=== PATIENT | male | born 1975 | race Caucasian/White ===

== ENCOUNTER 2020-08-06 16:14 | Inpatient (IN) | payer OTHER ==
[~2020-08-06] VITALS: Ht 180.3 cm; Wt 96.1 kg
[2020-08-06] MEDS ORDERED: OXYC10TA59 PO (16:33)
[2020-08-06 17:16] LABS: COVID AG,FIA SOURCE NASOPHARYNGEAL
[2020-08-06 18:19] LABS: ANION GAP 8 mmol/L (8-16); CALCIUM, TOTAL 9.1 mg/dL (8.8-10.5); CARBON DIOXIDE 29 mmol/L (22-29); CHLORIDE 103 mmol/L (98-107); CREATININE 0.92 mg/dL (0.60-1.30); GLOMERULAR FILTR. RATE CALC > 60 mL/min (>60); GLUCOSE,RANDOM 117 mg/dL (70-110); POTASSIUM 4.1 mmol/L (3.5-5.1); SODIUM SERUM 140 mmol/L (136-145); UREA NITROGEN, BLOOD 13 mg/dL (7-18)
[2020-08-06 18:21] LABS: BASOPHILS % (AUTO) 0.2 % (0.0-2.0); EOSINOPHILS % (AUTO) 0.1 % (1.0-6.0); HEMATOCRIT 47.9 % (41-53); HEMOGLOBIN 15.9 g/dL (13.5-17.5); LYMPHOCYTES # (AUTO) 0.9 K/uL (1.0-4.8); LYMPHOCYTES % (AUTO) 11.8 % (22.0-44.0); MEAN CORPUSCULAR HEMOGLOBIN 28.4 pg (26.0-34.0); MEAN CORPUSCULAR HGB CONC 33.1 G/dL (31.0-37.0); MEAN CORPUSCULAR VOLUME 86 fL (80-100); MONOCYTES # (AUTO) 0.2 K/uL (0.1-1.0); MONOCYTES % (AUTO) 3.2 % (2.0-9.0); NEUTROPHILS # (AUTO) 6.4 K/uL (1.8-7.7); NEUTROPHILS % (AUTO) 84.7 % (40.0-70.0); PLATELET COUNT (AUTO) 206 K/uL (150-450); RED BLOOD CELL COUNT(AUTO) 5.58 MIL/uL (4.50-5.90)
[2020-08-06 18:26] LABS: ALANINE AMINOTRANSFERASE 28 U/L (12-78); ALBUMIN 3.6 g/dL (3.4-5.0); ALKALINE PHOSPHATASE 69 U/L (46-116); ASPARTATE AMINOTRANSFERASE 21 U/L (15-37); BILIRUBIN,TOTAL 0.8 mg/dL (0.1-1.0); TOTAL PROTEIN, SERUM 7.4 g/dL (6.4-8.2)
[2020-08-06] MEDS ORDERED: 0.9% SODIUM CHLORIDE 10 ML SYRINGE IVP PRN (19:00)
[2020-08-06] MEDS ORDERED: ACETAMINOPHEN 325 MG TABLET PO PRN (19:00)
[2020-08-06] MEDS ORDERED: ONDANSETRON HCL 4 MG/2 ML VIAL IVP PRN (19:00)
[2020-08-06] MEDS ORDERED: CloNIDine HCL 0.1 MG TABLET PO ONE (19:30)
[2020-08-06 20:47] VITALS: BP 142/70
[2020-08-06] MEDS ORDERED: SODIUM CHLORIDE 0.9% 1,000 ML IV ONE (22:00)
[2020-08-06] MEDS ORDERED: METOCLOPRAMIDE HCL 5 MG/ML 2 ML VIAL IVP PRN (22:00)
[2020-08-06 22:47] VITALS: BP 127/63
[2020-08-06] MEDS: LORazepam 2 MG/ML VIAL IVP PRN (22:56)
[2020-08-06] MEDS: DICYCLOMINE HCL 10 MG CAPSULE PO PRN (22:56)
[2020-08-06] MEDS: ACETAMINOPHEN/CODEINE 300-15 MG TABLET PO PRN (22:56)
[2020-08-07] MEDS: ACETAMINOPHEN/CODEINE 300-15 MG TABLET PO PRN ×3 (05:26→19:59)
[2020-08-07 05:30] VITALS: BP 119/73
[2020-08-07 05:45] LABS: BASOPHILS % (AUTO) 0.3 % (0.0-2.0); EOSINOPHILS % (AUTO) 0.1 % (1.0-6.0); HEMATOCRIT 45.5 % (41-53); HEMOGLOBIN 15.4 g/dL (13.5-17.5); LYMPHOCYTES # (AUTO) 1.2 K/uL (1.0-4.8); LYMPHOCYTES % (AUTO) 13.8 % (22.0-44.0); MEAN CORPUSCULAR HEMOGLOBIN 28.7 pg (26.0-34.0); MEAN CORPUSCULAR HGB CONC 33.9 G/dL (31.0-37.0); MEAN CORPUSCULAR VOLUME 85 fL (80-100); MONOCYTES # (AUTO) 0.5 K/uL (0.1-1.0); MONOCYTES % (AUTO) 5.7 % (2.0-9.0); NEUTROPHILS # (AUTO) 7.1 K/uL (1.8-7.7); NEUTROPHILS % (AUTO) 80.1 % (40.0-70.0); PLATELET COUNT (AUTO) 214 K/uL (150-450); RED BLOOD CELL COUNT(AUTO) 5.37 MIL/uL (4.50-5.90); RED CELL DISTRIBUTION WIDTH 13.2 % (11.5-14.5)
[2020-08-07 05:56] LABS: ALANINE AMINOTRANSFERASE 21 U/L (12-78); ALBUMIN 3.5 g/dL (3.4-5.0); ALKALINE PHOSPHATASE 65 U/L (46-116); ANION GAP 18 mmol/L (8-16); ASPARTATE AMINOTRANSFERASE 15 U/L (15-37); BILIRUBIN,TOTAL 0.8 mg/dL (0.1-1.0); CALCIUM, TOTAL 8.7 mg/dL (8.8-10.5); CARBON DIOXIDE 24 mmol/L (22-29); CHLORIDE 103 mmol/L (98-107); CREATININE 0.96 mg/dL (0.60-1.30); GLOMERULAR FILTR. RATE CALC > 60 mL/min (>60); GLUCOSE,RANDOM 115 mg/dL (70-110); POTASSIUM 3.4 mmol/L (3.5-5.1); SODIUM SERUM 145 mmol/L (136-145); UREA NITROGEN, BLOOD 15 mg/dL (7-18)
[2020-08-07 07:38] VITALS: BP 120/75
[2020-08-07] MEDS: LORazepam 2 MG/ML VIAL IVP PRN ×2 (08:13→17:07)
[2020-08-07] MEDS ORDERED: OXYC10TA92 PO (12:20)
[2020-08-07] MEDS ORDERED: POTASSIUM CHL 10 MEQ/WATER 50 ML IV PRN (12:30)
[2020-08-07] MEDS: POTASSIUM CHLORIDE 20 MEQ ER TABLET PO PRN ×2 (15:11→21:44)
[2020-08-07] MEDS: TEMAZEPAM 15 MG CAPSULE PO SCH (19:44)
[2020-08-07] MEDS: DICYCLOMINE HCL 10 MG CAPSULE PO PRN (19:58)
[2020-08-07 20:04] VITALS: BP 124/79
[2020-08-07] MEDS: SODIUM CHLORIDE 0.9% 1,000 ML IV SCH (21:49)
[2020-08-08 00:01] VITALS: BP 112/62
[2020-08-08] MEDS: LOPERAMIDE HCL 2 MG CAPSULE PO PRN ×3 (00:45→20:48)
[2020-08-08] MEDS: LORazepam 2 MG/ML VIAL IVP PRN ×2 (02:07→10:09)
[2020-08-08] MEDS: ACETAMINOPHEN/CODEINE 300-15 MG TABLET PO PRN ×2 (04:53→10:47)
[2020-08-08] MEDS: DICYCLOMINE HCL 10 MG CAPSULE PO PRN (04:54)
[2020-08-08 05:06] VITALS: BP 126/75
[2020-08-08 07:57] VITALS: BP 120/76
[2020-08-08] MEDS: SODIUM CHLORIDE 0.9% 1,000 ML IV SCH (11:05)
[2020-08-08 15:10] VITALS: BP 114/58
[2020-08-08 19:40] VITALS: BP 101/56
[2020-08-08] MEDS ORDERED: ACETAMINOPHEN 325 MG TABLET PO PRN (20:15)
[2020-08-08] MEDS: TEMAZEPAM 15 MG CAPSULE PO SCH (20:48)
[2020-08-09] MEDS ORDERED: LOPE2 PO (00:22)
[2020-08-09] MEDS ORDERED: IBUP-2338 PO (00:23)
[2020-08-09] MEDS: SODIUM CHLORIDE 0.9% 1,000 ML IV SCH (00:25)
[2020-08-09 04:01] VITALS: BP 98/57
[2020-08-09 07:59] VITALS: BP 146/76
== END 2020-08-09 12:30 | DRG 897 ==
LOC: EMS 16:14 → 6S 18:51
PROVIDERS: ADMIT Internal Medicine; ATTEND Internal Medicine
DX: F11.93 Opioid use, unspecified with withdrawal (principal); G89.29 Other chronic pain; R19.7 Diarrhea, unspecified; E87.6 Hypokalemia; M54.9 Dorsalgia, unspecified; Z20.822 Contact with and (suspected) exposure to COVID-19; Z79.899 Other long term (current) drug therapy; Z02.89 Encounter for other administrative examinations
CPT/HCPCS: 84132; 87426; 99285; G0480; J2060; J2765; J7030